=== PATIENT | female | born 1995 | race Two or more races ===

== ENCOUNTER 2019-01-11 09:18 | Inpatient (IN) | payer OTHER ==
[~2019-01-11] VITALS: Ht 154.9 cm; Wt 72.6 kg
[2019-02-05] MEDS ORDERED: PRENATAL TABLE1 EAC4 (08:49)
== END 2019-02-07 11:12 | DRG 807 ==
LOC: LDR 01-18 14:15 → SURG-SUITE 02-05 19:42 → LDR 02-15 14:15
PROVIDERS: ADMIT Obstetrics & Gynecology
PROC: 10E0XZZ Delivery of Products of Conception, External Approach (ICD-10-PCS; principal; 2019-02-05)
PROC: 4A0HXFZ Measurement of Products of Conception, Cardiac Rhythm, External Approach (ICD-10-PCS; 2019-02-05)
DX: O80 Encounter for full-term uncomplicated delivery (principal); Z37.0 Single live birth; Z3A.38 38 weeks gestation of pregnancy